=== PATIENT | female | born 1960 | race Caucasian/White ===

== ENCOUNTER 2019-05-12 20:46 | Inpatient (IN) | payer OTHER ==
[~2019-05-12] VITALS: Ht 160 cm; Wt 64.2 kg
[2019-05-12] MEDS ORDERED: KETOROLAC 30 MG INJ IV STA (22:09)
[2019-05-12] MEDS ORDERED: morphine 4 MG/ML VIAL IV STA ×2 (22:09→23:48)
[2019-05-12] MEDS ORDERED: METHYLPREDNISOLONE 125 MG INJ IV ONE (22:30)
[2019-05-12] MEDS ORDERED: DIAZEPAM 5 MG/ML SYG IV ONE (22:30)
[2019-05-12] MEDS ORDERED: TRAM50TA2 PO (23:45)
[2019-05-12] MEDS ORDERED: PRED20TA PO (23:45)
[2019-05-12] MEDS ORDERED: IBUP800T48 PO (23:45)
[2019-05-12] MEDS ORDERED: DIAZ5TAB PO (23:45)
[2019-05-12] MEDS ORDERED: ONDANSETRON 4 MG INJ IV STA (23:48)
[2019-05-12] MEDS ORDERED: SOD CHLORIDE 0.9% 500 ML IV STA (23:48)
[2019-05-13] VITALS (19 sets, daily range): BP systolic 111–169; BP diastolic 58–99; PULSE 72–104; RESP 10–22; Ht 160 cm; Wt 64.2 kg
--- NOTE | 2019-05-13 03:22 | ERD ---
ER Documentation Chief Complaint Chief Complaint low back pain x 1 year, worse today, hx of sciatica HPI This is a 58-year-old female comes in with low back pain for 1 year that is worse today. She is complaining of foot foot drop is unable to ambulate at this point. Patient was sent in by neurosurgeon Dr. Gregory for further evaluation and possible admission ROS All systems reviewed and are negative except as per history of present illness. Medications Home Meds Active Scripts Tramadol HCl (Tramadol HCl) 50 Mg Tablet, 50 MG PO Q6 PRN for MODERATE-SEVERE PAIN, #10 TAB Prov:ALEX NICE V TIMING INSPECTOR 05/12/19 Ibuprofen* (Motrin*) 800 Mg Tab, 800 MG PO Q6H PRN for PAIN/INFLAMMATION/SCIATICA FLA, #30 TAB Prov:ALEX NICE V TIMING INSPECTOR 05/12/19 Diazepam* (Valium*) 5 Mg Tablet, 5 MG PO Q8 PRN for MUSCLE SPASM/SCIATICA FLAREUP, #15 TAB Prov:ALEX NICE V TIMING INSPECTOR 05/12/19 Prednisone* (Prednisone*) 20 Mg Tab, 40 MG PO DAILY for SCIATICA FLAREUP for 4 Days, TAB Prov:ALEX NICE V TIMING INSPECTOR 05/12/19 Allergies Allergies: Coded Allergies: No Known Drug Allergies (Verified Allergy, Unknown, 05/12/19) PMhx/Soc History of Surgery: Yes (HYSTERECTOMY, BREAST LOBECTOMY ) Hx Cardiac Disorders: Yes (HTN) Hx Miscellaneous Medical Probl: Yes (CHRONIC BACK PAIN ) Hx Alcohol Use: No Hx Substance Use: No Hx Tobacco Use: No Smoking Status: Never smoker Physical Exam Vitals Vital Signs Date Temp Pulse Resp B/P (MAP) Pulse Ox O2 O2 Flow FiO2 Time Delivery Rate 05/13/19 76 16 174/89 97 Room Air 00:54 (117) 05/13/19 98.0 77 17 194/92 97 Room Air 00:18 (126) 05/12/19 98.8 94 18 161/90 100 20:58 (113) Physical Exam Const: No acute distress Head: Atraumatic Eyes: Normal Conjunctiva ENT: Normal External Ears, Nose and Mouth. Neck: Full range of motion. No meningismus. Resp: Clear to auscultation bilaterally Cardio: Regular rate and rhythm, no murmurs Abd: Soft, non tender, non distended. Normal bowel sounds Skin: No petechiae or rashes Back: No midline or flank tenderness Ext: No cyanosis, or edema Neur: Awake and alert Psych: Normal Mood and Affect Result Diagram: 05/13/19 0000 05/13/19 0000 Results 24 hrs Laboratory Tests Test 05/13/19 00:00 White Blood Count 7.4 10^3/ul Red Blood Count 3.79 10^6/ul Hemoglobin 11.0 g/dl Hematocrit 33.8 % Mean Corpuscular Volume 89.2 fl Mean Corpuscular Hemoglobin 29.0 pg Mean Corpuscular Hemoglobin Concent 32.5 g/dl Red Cell Distribution Width 12.4 % Platelet Count 258 10^3/UL Mean Platelet Volume 9.4 fl Immature Granulocytes % 0.400 % Neutrophils % 67.5 % Lymphocytes % 24.5 % Monocytes % 5.7 % Eosinophils % 1.5 % Basophils % 0.4 % Nucleated Red Blood Cells % 0.0 /100WBC Immature Granulocytes # 0.030 10^3/ul Neutrophils # 5.0 10^3/ul Lymphocytes # 1.8 10^3/ul Monocytes # 0.4 10^3/ul Eosinophils # 0.1 10^3/ul Basophils # 0.0 10^3/ul Nucleated Red Blood Cells # 0.0 10^3/ul Prothrombin Time 12.0 Sec Prothrombin Time Ratio 0.9 INR International Normalized Ratio 0.88 Activated Partial Thromboplast Time 26.0 Sec Urine Color YELLOW Urine Clarity CLOUDY Urine pH 9.0 Urine Specific [place] 1.011 Urine Ketones NEGATIVE mg/dL Urine Nitrite NEGATIVE mg/dL Urine Bilirubin NEGATIVE mg/dL Urine Urobilinogen NEGATIVE mg/dL Urine Leukocyte Esterase TRACE Jatinder/ul Urine Microscopic RBC 1 /HPF Urine Microscopic WBC 11 /HPF Urine Amorphous Crystals FEW /HPF Urine Bacteria FEW /HPF Urine Hemoglobin NEGATIVE mg/dL Urine Glucose NEGATIVE mg/dL Urine Total Protein NEGATIVE mg/dl Sodium Level 144 mmol/L Potassium Level 4.1 mmol/L Chloride Level 106 mmol/L Carbon Dioxide Level 28 mmol/L Anion Gap 10 Blood Urea Nitrogen 20 mg/dl Creatinine 0.78 mg/dl Est Glomerular Filtrat Rate mL/min > 60 mL/min Glucose Level 113 mg/dl Calcium Level 9.4 mg/dl Total Bilirubin 0.5 mg/dl Direct Bilirubin 0.00 mg/dl Indirect Bilirubin 0.5 mg/dl Aspartate Amino Transf (AST/SGOT) 17 IU/L Alanine Aminotransferase (ALT/SGPT) 13 IU/L Alkaline Phosphatase 55 IU/L Total Protein 7.0 g/dl Albumin 4.0 g/dl Globulin 3.00 g/dl Albumin/Globulin Ratio 1.33 Lipase 363 U/L Current Medications Medications Dose Sig/Marta Start Time Status Last (Trade) Ordered Route PRN Stop Time Admin Dose Reason Admin 125 mg ONCE ONCE 05/12/19 DC 05/12/19 Methylprednis IV 22:30 22:29 olone Sodium 05/12/19 22:31 Succinate (Solu-Medrol) Morphine 4 mg ONCE STAT 05/12/19 DC 05/12/19 Sulfate IV 22:09 22:29 (morphine) 05/12/19 22:11 Diazepam 5 mg ONCE ONCE 05/12/19 DC 05/12/19 (Valium) IV 22:30 22:29 05/12/19 22:31 Ketorolac 30 mg ONCE STAT 05/12/19 DC 05/12/19 Tromethamine IV 22:09 22:29 (Toradol) 05/12/19 22:11 Sodium 500 ml @ Q1H STAT 05/12/19 DC 05/13/19 Chloride 500 mls/hr IV 23:48 01:51 05/13/19 00:47 Morphine 4 mg ONCE STAT 05/12/19 DC Sulfate IV 23:48 (morphine) 05/12/19 23:51 Ondansetron 4 mg ONCE STAT 05/12/19 DC HCl (Zofran IV 23:48 Inj) 05/12/19 23:51 Procedures/MDM Medical decision makin-year-old female comes in essentially intractable back pain. Patient will be admitted to Dr. Courtney who is on-call for the IPA. Dr. Jackson will consult. Departure Diagnosis: Primary Impression: Sciatica of left side Additional Impression: Back pain Back pain location: back pain in unspecified location Chronicity: unspecified Back pain laterality: unspecified Qualified Codes: M54.9 - Dorsalgia, unspecified Condition: Serious SIGIFREDO URIASDona May 13, 2019 03:22
[2019-05-13] MEDS ORDERED: ONDANSETRON 4 MG INJ IV PRN ×3 (03:30→18:00)
[2019-05-13] MEDS ORDERED: ACETAMINOPHEN 325 MG TAB PO PRN (03:30)
[2019-05-13] MEDS ORDERED: GABA300C16 PO (04:28)
[2019-05-13] MEDS ORDERED: LOSA50TA14 PO (04:28)
[2019-05-13] MEDS ORDERED: ATOR20TA65 PO (04:28)
[2019-05-13] MEDS ORDERED: NAPR-688 PO (04:28)
[2019-05-13] MEDS: SOD CHLORIDE 0.9% 1,000 ML IV SCH ×2 (06:02→21:30)
[2019-05-13] MEDS: AMLODIPINE 5 MG TAB PO SCH ×2 (06:02→21:37)
--- NOTE | 2019-05-13 07:12 | CONS ---
Assessment/Plan Assessment/Plan Assessment/Plan (Daily) This is a 58-year-old female with several year history of axial low back pain and intermittent left lower extremity pain. However in the past 7-8 months the patient has developed further exacerbation of her radiating left lower extremity pain and numbness. For the past several weeks the left lower extremity radiating pain, numbness and weakness has become very severe and excruciating. The patient has already made several visits to the emergency department and was in fact hospitalized at [facility] according to the family. The patient was reportedly evaluated by a neurosurgeon at the time, found to have a large L4-5 disc herniation and stenosis and was given several choices including observation, interventional pain management versus surgical intervention that the family believes to have been a lumbar fusion. The patient and her family elected to undergo epidural steroid injection without help. The patient was subsequently sent to a rehab facility and physical therapy did not help her. For the past 2-3 weeks the patient has become near fully wheelchair-bound due to intractable symptomatology. She was evaluated in my clinic 1.[address] detailed discussion about her treatment options including continued observation and physical therapy and pain management, the patient and her family elected to undergo L4-5 laminectomy and microdiscectomy as soon as possible. Request for surgery authorization was placed with the patient's insurance and patient was evaluated by her PMD for preoperative clearance. As the arrangements were being made to schedule the patient for surgery pending insurance authorization and preop clearance, the patient and her family contacted my office multiple times indicating that the patient has had further increased low back pain and left lower extremity pain and numbness and still non-ambulatory. She also reported further increased weakness in the left lower extremity. The patient was advised to come to the ED for further evaluation. The patient has been subsequently admitted to the hospitalist service. The patient has tried ibuprofen, Tylenol No. 3 and other pain medications without any improvement of her symptomatology. Medrol dose pack has not provided her with fdc relief of her symptoms. The patient describes the radiating pain involving the left paraspinal lumbosacral area to the buttock to the posterior thigh down the posterior leg in the posterior lateral leg going to the entire foot accompanied by weakness and numbness. The patient denies obvious bowel or bladder dysfunction. Physical examination: This is a middle aged female lying in bed. She appears to be in some obvious distress related to LBP and lower extremity pain. She is accompanied by her and her son. Patient is awake alert and oriented 4. Language is fluent. Face is symmetric. She speak some Beninese but her and son are completely fluent in Beninese. Shoulder shrugs are symmetric. Muscle bulk and tone is normal bilateral upper and lower extremities. Deep tendon reflexes are 1+ bilateral upper and lower extremities except for the left ankle where it is hypoactive. Sensation to light touch is grossly normal bilateral upper and lower extremities except for the left posterior and posterior lateral calf and the dorsum and the plantar surface of the left foot when compared to the right. Motor strength bilateral upper extremities is 5- out of 5. Motor strength on the right lower extremity is at least 4 out of 5 but seems to be limited secondary to his low back pain and discomfort. Motor strength left lower extremity is as follows: Hip flexion 2 out of 5, knee flexion and extension 3 out of 5 (seems to be limited at least partially secondary to pain), left ankle dorsiflexion 4 out of 5, left EHL 4- out of 5, left ankle dorsiflexion 4 out of 5. There is no Weston sign present bilaterally. Straight leg raise testing has been deferred due to the patient being in extreme pain and discomfort. Gait testing has been deferred as the patient is wheelchair-bound and in severe discomfort. LUMBOSACRAL SPINE: Examination of the lumbar spine reveals moderate to severe tenderness at the lumbosacral junction at midline and over the left paraspinal region. LUMBOSACRAL SPINE ACTIVE RANGE OF MOTION: Testing has been deferred due to severe pain. Imaging: Outside MRI of lumbar spine with and without contrast, 04/21/2019: The normal lumbar lordosis is mostly preserved. There is no gross fracture noted. There is a subtle L3-4 anterolisthesis. Most significantly there is a very large central and left paracentral disc herniation at L4-5 causing clinically severe central canal and lateral recess stenosis greater on the left than the ri ght impinging on the thecal sac as well as the traversing L5 nerve roots bilaterally. Assessment/plan: I have again reviewed the above clinical findings in great detail with the patient and her family. The patient's current severe low back pain and even to a greater extent left lower extremity pain, numbness and weakness seems to be related to the large central and paracentral L4-5 disc herniation leading to severe central and lateral recess stenosis. The patient's current symptomatology seems to be related to acute on chronic pathology based on the patient's history. We have again discussed the patient's various treatment options in detail with the options including continued observation, further physical therapy, further interventional pain management versus neurosurgical intervention. The patient has already undergone physical therapy and has had one lumbar epidural steroid i njection without significant improvement. The patient and her family would like for patient to undergo urgent neurosurgical intervention. The patient can benefit from L4-5 decompressive lumbar laminectomy, medial facetectomy and foraminotomies and microdiscectomy. I have discussed the risks and benefits of the above operation in great detail with the patient and her family with the risks including bleeding, infection, difficulty with wound healing, weakness, numbness, paralysis, bowel or bladder dysfunction, cerebrospinal fluid leak, injury to the adjacent tissue, failure of improvement of symptoms or worsening of symptoms, need for further surgeries including revision or extension of the decompression and possible need for instrumented lumbar fusion as well as those risks associated with surgery and general anesthesia including deep venous thrombosis, pulmonary embolism, pneumonia, heart attack, stroke, and . The patient's back pain may or may not improve even with the above operation. The patient's anatomy including body habitus encountered intraoperatively may not allow for minimally invasive approach and we may need to proceed with the traditional open approach if necessary in order to achieve the above goals. There is also a 10-15% chance of recurrent disc herniation that may require further intervention including surgeries.The patient and her family fully understand the above discussion and wish to proceed with the above surgery. The patient has already been cleared preoperatively. AQUILINO ROMAN MD May 13, 2019 07:11
[2019-05-13] MEDS ORDERED: LOSARTAN 50 MG TAB PO SCH (09:00)
[2019-05-13] MEDS: GABAPENTIN 300 MG CAP PO SCH (09:00)
[2019-05-13] MEDS: LOSARTAN 50 MG TAB PO SCH (09:00)
--- NOTE | 2019-05-13 09:22 | HP ---
DATE OF ADMISSION: 05/13/2019 CHIEF COMPLAINT: Low back pain radiating to left leg care. HISTORY OF PRESENT ILLNESS: A 58-year-old female with a history of hypertension and chronic low back pain for about 8 months, presented to emergency room, was admitted to the hospital with worsening lo w back pain radiating to the buttock and all the way down to her left heel. The patient was diagnose d with lumbar disk disease in the past and previously evaluated. An epidural injection was initially suggested as an option. The patient underwent a lumbar epidural with no improvement in her symptoms . The patient was actually diagnosed with L4-L5 disk herniation. She has already been evaluated by Dr. Ashley and planned to undergo L4-L5 decompressive lumbar laminectomy. On review of systems she denies any chest pain at rest or with exertion. She denies shortness of bambi ath or dyspnea on exertion. No abdominal pain, nausea or vomiting. PAST MEDICAL HISTORY: 1. Hypertension. 2. Hyperlipidemia. 3. Chronic low back pain due to lumbar disk disease. PAST SURGICAL HISTORY: Status post total abdominal hysterectomy, status post left breast cyst remova l. MEDICATIONS PRIOR TO ADMISSION: Include atorvastatin, diazepam, gabapentin, losartan, ibuprofen and prednisone. SOCIAL HISTORY: The patient lives at home. Family members were at the bedside. She denies tobacco or alcohol use. PHYSICAL EXAMINATION: GENERAL: Well-developed, well-nourished female who is in moderate distress due to left lower extremi ty pain. VITAL SIGNS: Stable. She is afebrile. HEENT: Extraocular muscles intact. Pupils equal and reactive to light bilaterally. Sclerae are ani cteric. Oropharynx is clear and moist. NECK: Supple, no JVD, no carotid bruits. LUNGS: Clear to auscultation bilaterally. CARDIAC: Regular rate and rhythm. No murmurs, rubs or gallops. ABDOMEN: Soft, nontender, nondistended, normoactive bowel sounds. EXTREMITIES: No clubbing, cyanosis, or edema. BACK: The patient has moderate tenderness on palpation extending to the left buttock. NEUROLOGICAL: Patient has decreased motor strength on the left side, 3/5 on the left lower extremity 3/5. There is sign of straight leg. Right-sided normal strength. MRI of the lumbar spine done on 0 04/21/2019 shows a subtle L3-L4 anterolisthesis. Most significantly there is a very large central an d left past central disk herniation at L4-L5 causing clinically severe central canal and lateral rece ss stenosis, greater on the left than the right impinging on the thecal sac as well as transversing t he L5 nerve roots bilaterally. ASSESSMENT: 1. A 58-year-old female with severe lumber disk disease and radiculopathy. 2. Hypertension. 3. Hyperlipidemia. 4. Chronic low back pain. PLAN: Admit to med/surg, proceed with the L4-L5 decompressive lumbar laminectomy, medialis facetectom y, and foraminotomy and microdiskectomy. Resume selective home medications. The patient is medically cleared to undergo proposed surgical intervention. Dictated By: SPENCER ANDESRON/BRI Conf#: [id number] DID#: [id number]
[2019-05-13] MEDS: morphine 4 MG/ML VIAL IV PRN ×2 (09:40→22:00)
[2019-05-13] MEDS ORDERED: DIAZEPAM 5 MG TAB PO PRN (10:00)
--- NOTE | 2019-05-13 13:39 | PREAC ---
Date/Time of Note Date/Time of Note DATE: 05/13/19 TIME: 13:39 Anesthesia Eval and Record Evaluation Time Pre-Procedure Interview DATE: 05/13/19 TIME: 13:39 Age 58 Sex female NPO: 8 hrs Preoperative diagnosis L4-5 HNP with spinal stenosis and radiculopathy Planned procedure L405 decompressive laminectomy, medial facetectomy, foraminotomy, microdiscectomy Past Medical History Past Medical History: Includes Cardio: HTN, Dyslipidemia Surgery & Anesthesia Issues No known issue Meds Anticoagulation: No Beta Brian within 24 hr: No Reason Beta Brian not given: Pt. not on B-Brian Active Scripts Tramadol HCl (Tramadol HCl) 50 Mg Tablet, 50 MG PO Q6 PRN for MODERATE-SEVERE PAIN, #10 TAB Prov:ALEX NICE V DORMITORY SUPERVISOR 05/12/19 Ibuprofen* (Motrin*) 800 Mg Tab, 800 MG PO Q6H PRN for PAIN/INFLAMMATION/SCIATICA FLA, #30 TAB Prov:ALEX NICE V DORMITORY SUPERVISOR 05/12/19 Diazepam* (Valium*) 5 Mg Tablet, 5 MG PO Q8 PRN for MUSCLE SPASM/SCIATICA FLAREUP, #15 TAB Prov:ALEX NICE V DORMITORY SUPERVISOR 05/12/19 Prednisone* (Prednisone*) 20 Mg Tab, 40 MG PO DAILY for SCIATICA FLAREUP for 4 Days, TAB Prov:ALEX NICE V DORMITORY SUPERVISOR 05/12/19 Reported Medications Losartan Potassium* (Losartan Potassium*) 50 Mg Tablet, 50 MG PO DAILY for 30 Days, #30 05/13/19 Naproxen* (Naproxen*) 500 Mg Tablet, 500 MG PO BID for 30 Days TAKE 1 TABLET BY MOUTH EVERY DAY 05/13/19 Gabapentin* (Gabapentin*) 300 Mg Capsule, 300 MG PO DAILY 05/13/19 Atorvastatin Calcium (Atorvastatin Calcium) 20 Mg Tablet, 20 MG PO QHS for 30 Days, #30 05/13/19 Current Medications Ondansetron HCl (Zofran Inj) 4 mg BRIDGE ORDER PRN IV NAUSEA/VOMITING; Start 05/13/19 at 03:30; Stop 05/14/19 at 03:29 Acetaminophen (Tylenol Tab) 650 mg ER BRIDGE PRN PO .MILD PAIN 1-3 OR TEMP; Start 05/13/19 at 03:30; Stop 05/14/19 at 03:29 Losartan Potassium (Cozaar) 50 mg DAILY PO ; Start 05/13/19 at 09:00 Sodium Chloride 1,000 ml @ 75 mls/hr [id number] IV Last administered on 05/13/19at 06:02; Admin Dose 75 MLS/HR; Start 05/13/19 at 05:30 Amlodipine Besylate (Norvasc) 5 mg BID PO Last administered on 05/13/19at 06:02; Admin Dose 5 MG; Start 05/13/19 at 06:00 Ondansetron HCl (Zofran Inj) 4 mg Q4H PRN IV NAUSEA AND/OR VOMITING; Start 05/13/19 at 05:30 Hydralazine HCl (Apresoline) 5 mg Q6 PRN PO SYSTOLIC >160; Start 05/13/19 at 06:00 Atorvastatin Calcium (Lipitor) 20 mg QHS PO ; Start 05/13/19 at 21:00 Diazepam (Valium) 5 mg Q8H PRN PO MUSCLE SPASM/SCIATICA FLAREUP; Start 05/13/19 at 10:00 Gabapentin (Neurontin) 300 mg DAILY PO ; Start 05/13/19 at 09:00 Morphine Sulfate (morphine) 4 mg Q3H PRN IV SEVERE PAIN LEVEL 7-10 Last administered on 05/13/19at 09:40; Admin Dose 4 MG; Start 05/13/19 at 09:30 Meds reviewed: Yes Allergies Coded Allergies: No Known Drug Allergies (Verified Allergy, Unknown, 05/12/19) Allergies Reviewed: Yes Labs/Studies Labs Reviewed: Reviewed by anesthesiologist Result Diagram: 05/13/19 0000 05/13/19 0000 Laboratory Tests 05/13/19 00:00 test: N/A Pre-procedure Exam Last vitals Vital Signs Date Temp Pulse Resp B/P (MAP) Pulse Ox O2 O2 Flow FiO2 Time Delivery Rate 05/13/19 98.0 104 20 128/74 98 07:38 (92) 05/13/19 Room Air 03:45 Airway: Adequate mouth opening Mallampati: Mallampati I Teeth: Normal Lung: Normal Heart: Normal ASA Physical Status ASA physical status: 2 Emergency: None Planned Anesthetic General/MAC: ETT Planned Pain Management Parenteral pain med Pre-operative Attestations Prior to commencing anesthesia and surgery, the patient was re-evaluated, there was verification of: *The patient's identity *The results of appropriate recent lab work and preoperative vital signs *The above evaluation not changing prior to induction *Anesthetic plan, risk benefits, alternative and complications discussed with patient/family; questions answered; patient/family understands, accepts and wishes to proceed. ESVIN MILLER MD May 13, 2019 13:39
[2019-05-13] MEDS ORDERED: SEVOFLURANE 15 MIN ONE (14:00)
[2019-05-13] MEDS ORDERED: CEFAZOLIN 1 GM INJ ONE (14:00)
[2019-05-13] MEDS ORDERED: GLYCOPYRROLATE 0.4 MG INJ ONE ×2 (14:01→16:48)
[2019-05-13] MEDS ORDERED: ROCURONIUM 50 MG INJ ONE (14:01)
[2019-05-13] MEDS ORDERED: SUCCINYLCHOLINE CHLORIDE 100 MG/5 ML SYG IV ONE (14:01)
[2019-05-13] MEDS ORDERED: LIDOCAINE 2% (SDV) 5 ML INJ ONE (14:01)
[2019-05-13] MEDS ORDERED: PROPOFOL 20 ML ONE (14:01)
[2019-05-13] MEDS ORDERED: NEOSTIGMINE 3 MG/3 ML SYRINGE ONE (14:01)
[2019-05-13] MEDS ORDERED: MEPERIDINE 100 MG INJ ONE (14:02)
[2019-05-13] MEDS ORDERED: BUPIVACAINE 0.5% (SDV) 30 ML INJ ONE (14:16)
[2019-05-13] MEDS ORDERED: THROMBIN (BOVINE) 5,000 UNIT VIAL TP ONE (14:16)
[2019-05-13] MEDS ORDERED: GELATIN SIZE 100 SPONGE ONE (14:16)
[2019-05-13] MEDS ORDERED: LIDOCAINE 1%/EPI 30 ML INJ ONE (14:17)
[2019-05-13] MEDS ORDERED: POLYMYXIN/BACITRACIN 1L IRRIG ONE (14:17)
[2019-05-13] MEDS ORDERED: METHYLPREDNISOLONE ACET 80 MG/ML 1 ML INJ ONE (17:31)
[2019-05-13] MEDS ORDERED: METHYLPREDNISOLONE ACET 80 MG/ML 1 ML ONE (17:32)
[2019-05-13] MEDS ORDERED: METOCLOPRAMIDE 10 MG INJ ONE (17:41)
[2019-05-13] MEDS ORDERED: ONDANSETRON 4 MG INJ ONE (17:41)
[2019-05-13] MEDS ORDERED: HYDROmorphONE 1 MG/5 ML IV SYRINGE IV PRN ×3 (18:00)
[2019-05-13] MEDS ORDERED: NALOXONE (0.4 MG/ML) INJ IV PRN (18:00)
[2019-05-13] MEDS ORDERED: BISACODYL 10 MG SUPP PR PRN (18:00)
[2019-05-13] MEDS ORDERED: MEPERIDINE 25 MG INJ IV PRN (18:00)
[2019-05-13] MEDS ORDERED: LABETALOL HCL 20MG INJ IV PRN (18:00)
[2019-05-13] MEDS ORDERED: CYCLOBENZAPRINE 10 MG TAB PO PRN (18:00)
[2019-05-13] MEDS ORDERED: hydrALAzine 20 MG INJ IV PRN (18:00)
[2019-05-13] MEDS ORDERED: traMADol 50 MG TAB PO PRN (18:00)
[2019-05-13] MEDS ORDERED: MIDAZOLAM 1 MG/ML 2 ML INJ IV PRN (18:00)
[2019-05-13] MEDS ORDERED: DIPHENHYDRAMINE 50 MG INJ IV PRN (18:00)
[2019-05-13] MEDS ORDERED: HYDROmorphONE 0.5 MG/0.5 ML SYG IV PRN (18:00)
[2019-05-13] MEDS ORDERED: FENTAnyl 50 MCG/ML VIAL IV PRN ×3 (18:00)
[2019-05-13] MEDS ORDERED: METOCLOPRAMIDE 10 MG INJ IV PRN (18:00)
[2019-05-13] MEDS ORDERED: EPHEDrine 25 MG/5 ML SYG IV PRN (18:00)
--- NOTE | 2019-05-13 18:02 | SIPON ---
Date/Time of Note Date/Time of Note DATE: 05/13/19 TIME: 18:00 Operative Report Preoperative Diagnosis L4-5 HNP L4-5 severe central and left lateral recess stenosis Postoperative Diagnosis L4-5 HNP L4-5 severe central and left lateral recess stenosis Operation/Procedure Performed MIS L4 laminectomy, L. L4-5 medial facetectomy, foraminotomy, microdiscectomy Surgeon see signature line physician assistant psychiatry None Anesthesia: general Estimated blood loss: 10 - 50 ml's (25cc) Transfusion Required none Specimen None Grafts/Implants none Complications none AQUILINO ROMAN MD May 13, 2019 18:02
[2019-05-13] MEDS ORDERED: LABETALOL HCL 20MG INJ ONE (18:03)
[2019-05-13] MEDS: CEFAZOLIN 1 GM/50 ML (PMX) 50 ML IVPB SCH (18:33)
[2019-05-13] MEDS: IBUPROFEN 800 MG TAB PO SCH ×2 (21:33→22:00)
[2019-05-13] MEDS: ATORVASTATIN 20 MG TAB PO SCH (21:33)
[2019-05-13] MEDS: DOCUSATE SODIUM 100 MG CAP PO SCH (21:33)
--- NOTE | 2019-05-13 23:35 | OPR ---
Date/Time of Note Date/Time of Note DATE: 05/13/19 TIME: 23:35 Operative Report Procedure Date: May 13, 2019 Preoperative Diagnosis Please see below. Postoperative Diagnosis Please see below. Operation/Procedure Performed Please see below. Surgeon see signature line Certification Engineer None Anesthesia Type: general Estimated Blood Loss: 10 - 50 ml's (25cc) Transfusion none Specimen Please see below. Grafts/Implants none Tubes/Drains Please see below. Complications none Pt Condition Post Procedure: stable Disposition: PACU Procedure Description Date of operation: 05/13/2019 Operating surgeon: Aquilino Roman M.D. Preoperative diagnosis: 1. L4-5 severe central and left lateral recess stenosis 2. L4-5 large central and left paracentral disc herniation Post operative diagnosis: 1. L4-5 severe central and left lateral recess stenosis 2. L4-5 large central and left paracentral disc herniation Procedure(s) performed: 1. Minimally invasive left L4 decompressive hemilaminectomy 2. Minimally invasive left L4-5 medial facetectomy and foraminotomy 3. Minimally invasive left L4-5 microdiscectomy 4. Intraoperative microscope with microdissection 5. Intraoperative fluoroscopy with professional interpretation 6. Intraoperative neurophysiologic monitoring including SSEP, MEP and EMG Indication for procedure: Please look at the inpatient consultation note for a full set of indications. Description of operative procedure: The patient was brought to the operating room and after general anesthesia was obtained, she was placed prone on top of the Lorenzo frame. Her arms were abducted less than 90 and placed in superman position. The Lorenzo frame was slightly raised. The midline lumbar spine was marked. A vertical line approximately 1-1/2 cm to the left of midline was marked. After the skin was prepped and draped under standard sterile fashion, the spinal needle was inserted along the left paraspinal lumbar line under direct lateral fluoroscopy and the L4-5 level was located. A small vertical incision along the left paraspinal lumbar line centered at the entry point of the spinal needle was marked. Local anesthetics were infiltrated into the marked incision. The skin was then incised down to the level of the fascia. Serial tube dilators were inserted under direct lateral fluoroscopy and the posterior soft tissue was dissected off the posterior bony elements. The final working tube was inserted under direct lateral fluoroscopy, placed parallel to the L4-5 disc space and medialized and locked to the table in that position. The operative microscope was into the field. The posterior soft tissue was dissected off the posterior bony elements. Using a high-speed drill, Kerrison rongeurs and curettes, we performed a decompressive left L4 hemilaminectomy, left L4-5 medial facetectomy and foraminotomy. The ligamentum flavum was removed. The thecal sac and the traversing left L5 nerve root were exposed. The left L4-5 lateral recess was fully decompressed. The traversing left L5 nerve root and the thecal sac were then gently medially retracted. The raised anulus indicating the disc herniation was located. The annulus was then cut in a cruciate fashion. Several pieces of loose disc fragment were seen readily coming out from the disc space and were removed. The down pushing curette was used to remove several other loose pieces of disc fragment. The ventral epidural space was fully decompressed. By the end of the procedure, the thecal sac and traversing left L5 nerve root were fully decompressed and pulsatile. Complete hemostasis was obtained. The wound was copiously irrigated with antibiotic solution. 80 mg of Depo-Medrol was placed on top of the exposed dura. The tube was removed. The muscle and fascia layers were reapproximated with interrupted sutures. The dermal layer was reapproximated with interrupted sutures. The skin was reapproximated Dermabond. A sterile dressing was placed on top of the incision site. The patient was then placed supine on the hospital bed, awoken up, extubated and transported to the recovery room in stable condition. The patient was awake and moving her upper and lower extremities equally and to command in the recovery room. Estimated blood loss: 25 cc Blood products administered: None Packs/drains: None Type of anesthesia: General Incision: Left paraspinal lumbar Skin closure: Dermabond Wound classification: Clean Specimen removed: None Patient's condition: Stable Prognosis: Good AQUILINO ROMAN MD May 13, 2019 23:35
[2019-05-14] MEDS: CEFAZOLIN 1 GM/50 ML (PMX) 50 ML IVPB SCH ×2 (01:25→09:53)
[2019-05-14 02:07] VITALS: BP 137/74; PULSE 96; RESP 18
[2019-05-14] MEDS: IBUPROFEN 800 MG TAB PO SCH ×2 (05:14→13:07)
[2019-05-14 05:21] VITALS: BP 140/79; PULSE 88
[2019-05-14] MEDS ORDERED: PANTOPRAZOLE (EC) 40 MG TAB PO SCH (06:00)
[2019-05-14] MEDS ORDERED: PANTOPRAZOLE 40 MG INJ IV SCH (06:00)
[2019-05-14 07:34] VITALS: BP 146/73; PULSE 79; RESP 18
[2019-05-14] MEDS: SOD CHLORIDE 0.9% 1,000 ML IV SCH ×2 (08:10→13:08)
--- NOTE | 2019-05-14 08:18 | PAC ---
Date/Time of Note Date/Time of Note DATE: 05/14/19 TIME: 08:17 Post-Anesthesia Notes Post-Anesthesia Note Last documented vital signs Vital Signs Date Temp Pulse Resp B/P (MAP) Pulse Ox O2 O2 Flow FiO2 Time Delivery Rate 05/14/19 98.5 79 18 146/73 94 Room Air 07:34 (97) 05/13/19 8.0 18:54 Activity: WNL Respiratory function: WNL Cardiovascular function: WNL Mental status: Baseline Pain reasonably controlled: Yes Hydration appropriate: Yes Nausea/Vomiting absent: Yes ESVIN MILLER MD May 14, 2019 08:18
[2019-05-14] MEDS ORDERED: BISACODYL 10 MG SUPP PR PRN (09:30)
[2019-05-14] MEDS ORDERED: MAGNESIUM HYDROXIDE 30ML CUP PO PRN (09:30)
[2019-05-14] MEDS ORDERED: HYDROCODONE/APAP (10/325) TAB PO PRN (09:30)
[2019-05-14] MEDS ORDERED: POLYETHYLENE GLYCOL 17 GM PACKET PO SCH (09:30)
--- NOTE | 2019-05-14 09:34 | PN ---
Date/Time of Note Date/Time of Note DATE: 05/14/19 TIME: 09:33 Assessment/Plan VTE Prophylaxis Risk score (from Ns)>0 risk: 3 SCD applied (from Ns): Yes Pharmacological prophylaxis: NA/contraindicated Pharm contraindication: surgical contra Lines/Catheters IV Catheter Type (from Nrsg): Peripheral IV Assessment/Plan Assessment/Plan 58 yo female with: 1. L4-5 HNP and severe central and left lateral recess stenosis, status post L4 laminectomy, L4-5 medial facetectomy, foraminotomy and microdiscectomy, POD#1, Physical therapy evaluation pending. Pain controlled. Discharge planning later this afternoon after physical therapy evaluation and recommendation and if okay with Dr. Ashley. 2. Hypertension: Continue home medications, blood pressure controlled. Prophylaxis: SCDs for DVT prophylaxis, Protonix for GI prophylaxis Disposition: PT evaluation this morning, anticipated discharge this afternoon if okay with neurosurgery and patient ambulatory. She reports that her FWW was already ordered and a physical therapy has been ordered for discharge. Result Diagram: 05/13/19 0000 05/13/19 0000 Subjective 24 Hr Interval Summary Free Text/Dictation Patient doing well this morning, she has some low back pain and experiencing some numbness in her left lower extremity as she reports, she is postop day 1 today and had her L4-L5 laminectomy overnight. She is awaiting physical therapy evaluation. She is aware she is likely to discharge home later today with home PT. She already had a FWW ordered as an outpatient as she reports and a prescription for [place] has been left in her chart for discharge purposes once cleared by both physical therapy and neurosurgery. Exam/Review of Systems Exam Vitals Vital Signs Date Temp Pulse Resp B/P (MAP) Pulse Ox O2 O2 Flow FiO2 Time Delivery Rate 05/14/19 98.5 79 18 146/73 94 Room Air 07:34 (97) 05/13/19 8.0 18:54 Intake and Output 05/13/19 05/13/19 05/14/19 1515:00 23:00 07:00 IntakeIntake Total 1000 ml 593 ml OutputOutput Total 20 ml BalanceBalance 1000 ml -20 ml 593 ml Constitutional: alert, oriented, well developed Respiratory: clear to auscultation, normal air movement Cardiovascular: regular rate and rhythm, nl pulses Gastrointestinal: soft, non-tender Musculoskeletal: nl extremities to inspection, nl gait and stance Extremities: normal pulses Neurological: ROAD CONTRACTOR II-XII intact, nl mental status, nl speech, other (Patient moving all 4 extremities, physical therapy evaluation pending.) Medications Medication Current Medications Losartan Potassium (Cozaar) 50 mg DAILY PO ; Start 05/13/19 at 09:00 Sodium Chloride 1,000 ml @ 75 mls/hr [id number] IV Last administered on 05/13/19at 21:30; Admin Dose 75 MLS/HR; Start 05/13/19 at 05:30 Amlodipine Besylate (Norvasc) 5 mg BID PO Last administered on 05/13/19at 21:37; Admin Dose 5 MG; Start 05/13/19 at 06:00 Ondansetron HCl (Zofran Inj) 4 mg Q4H PRN IV NAUSEA AND/OR VOMITING; Start 05/13/19 at 05:30 Hydralazine HCl (Apresoline) 5 mg Q6 PRN PO SYSTOLIC >160; Start 05/13/19 at 06:00 Atorvastatin Calcium (Lipitor) 20 mg QHS PO Last administered on 05/13/19at 21:33; Admin Dose 20 MG; Start 05/13/19 at 21:00 Diazepam (Valium) 5 mg Q8H PRN PO MUSCLE SPASM/SCIATICA FLAREUP; Start 05/13/19 at 10:00 Gabapentin (Neurontin) 300 mg DAILY PO ; Start 05/13/19 at 09:00 Morphine Sulfate (morphine) 4 mg Q3H PRN IV SEVERE PAIN LEVEL 7-10 Last administered on 05/13/19at 22:00; Admin Dose 4 MG; Start 05/13/19 at 09:30 Tramadol HCl (Ultram) 50 mg Q4H PRN PO .PAIN 1-5; Start 05/13/19 at 18:00 Hydromorphone HCl (Dilaudid) 0.2 mg Q1H PRN IV .BREAKTHROUGH PAIN; Start 05/13/19 at 18:00 Cefazolin Sodium 50 ml @ 100 mls/hr Q8H IVPB Last administered on 05/14/19at 01:25; Admin Dose 100 MLS/HR; Start 05/13/19 at 18:00; Stop 05/14/19 at 10:29 Docusate Sodium (Colace) 100 mg BID PO Last administered on 05/13/19at 21:33; Admin Dose 100 MG; Start 05/13/19 at 21:00 Cyclobenzaprine HCl (Flexeril) 5 mg TID PRN PO .MUSCLE SPASM; Start 05/13/19 at 18:00 Naloxone HCl (Narcan) 0.2 mg Q2M PRN IV .RR 8 BREATHS/MIN OR LESS; Start 05/13/19 at 18:00 Ibuprofen (Motrin) 800 mg Q8 PO Last administered on 05/14/19at 05:14; Admin Dose 800 MG; Start 05/13/19 at 18:00 Pantoprazole (Protonix Tab) 40 mg DAILY@06 PO Last administered on 05/14/19at 05:13; Admin Dose 40 MG; Start 05/14/19 at 06:00 Acetaminophen/ Hydrocodone Bitart ([place] (10/325)) 1 tab Q4H PRN PO PAIN LEVEL 6-10; Start 05/14/19 at 09:30 Magnesium Hydroxide (Milk Of Mag) 30 ml DAILY PRN PO CONSTIPATION; Start 05/14/19 at 09:30 Bisacodyl (Dulcolax Supp) 10 mg DAILY PRN NM CONSTIPATION; Start 05/14/19 at 09:30 Polyethylene Glycol (Miralax) 17 gm DAILY PO ; Start 05/14/19 at 09:30 CHRISTINA MUNOZ May 14, 2019 09:34
[2019-05-14] MEDS: DOCUSATE SODIUM 100 MG CAP PO SCH ×2 (09:47→20:08)
[2019-05-14] MEDS: GABAPENTIN 300 MG CAP PO SCH (09:47)
[2019-05-14] MEDS: AMLODIPINE 5 MG TAB PO SCH ×2 (09:48→20:09)
[2019-05-14] MEDS: LOSARTAN 50 MG TAB PO SCH (09:48)
[2019-05-14 14:55] VITALS: BP 142/77; PULSE 94; RESP 18
--- NOTE | 2019-05-14 15:24 | PDOCDIS ---
Discharge Instructions CONDITION [id number] Patient Condition: [id number] Stable ACTIVITY: [id number] Activity Restrictions: [id number] Slowly Increase Activity [id number] Activity Restrictions [id number] Please obtain additional Comment: postop recs or restrictions from Dr Ashley FOLLOW UP/APPOINTMENTS Follow-up Plan PCP in [address] Ashley in 1 to 2 weeks CHRISTINA MUNOZ May 14, 2019 15:24
[2019-05-14] MEDS ORDERED: POLY17PO6 PO (15:34)
[2019-05-14] MEDS ORDERED: CYCL10TA7 PO (15:34)
[2019-05-14] MEDS ORDERED: IBUP800T48 PO (15:34)
[2019-05-14] MEDS ORDERED: DOCU-144 PO (15:34)
[2019-05-14] MEDS ORDERED: PANT40TA4 PO (15:34)
--- NOTE | 2019-05-14 16:18 | DS ---
Date/Time of Note Date/Time of Note DATE: 05/14/19 TIME: 16:12 Discharge Summary Admission/Discharge Info Admit Date/Time May 13, 2019 at 03:21 Discharge Date/Time 05/14/2019 Discharge Diagnosis 1. L4-5 HNP and severe central and left lateral recess stenosis, status post L4 laminectomy, L4-5 medial facetectomy, foraminotomy and microdiscectomy, POD#1 2. Hypertension Patient Condition: Stable Consults Neurosurgery, Dr Ashley Procedures L4 laminectomy, L4-5 medial facetectomy, foraminotomy and microdiscectomy Hx of Present Illness 58-year-old female with a history of hypertension and chronic low back pain for about 8 months, presented to emergency room, was admitted to the hospital with worsening low back pain radiating to the buttock and all the way down to her left heel. The patient was diagnosed with lumbar disk disease in the past and previously evaluated. An epidural injection was initially suggested as an option. The patient underwent a lumbar epidural with no improvement in her symptoms. The patient was actually diagnosed with L4-L5 disk herniation. She has already been evaluated by Dr. Ashley and planned to undergo L4-L5 decompressive lumbar laminectomy. Hospital Course Patient had the anticipated procedure, L4 laminectomy and L4-L5 medial facetectomy, foraminotomy and microdiscectomy, she is postoperative day #1 today, she has been seen by physical therapy, she ambulated with a walker, does stair training, she lives on the second floor and pain is controlled. Patient is being discharged home in stable condition, she is to follow-up with Dr. Ashley within 1 to 2 weeks and follow-up with primary care physician within 1 week. Home health PT, bedside commode and FWW have been arranged. Home Meds Active Scripts Pantoprazole* (Pantoprazole*) 40 Mg Tablet., 40 MG PO DAILY for 30 Days Prov:CHRISTINA MUNOZ 05/14/19 Ibuprofen* (Motrin*) 800 Mg Tab, 800 MG PO Q8 PRN for PAIN, #30 TAB Prov:CHRISTINA MUNOZ 05/14/19 Polyethylene Glycol* (Miralax*) 17 Gm Powd.pack, 17 GM PO DAILY for 30 Days Over the counter Prov:CHRISTINA MUNOZ 05/14/19 Docusate Sodium* (Colace*) 100 Mg Capsule, 100 MG PO BID, #60 CAP Prov:CHRISTINA MUNOZ 05/14/19 Cyclobenzaprine Hcl* (Cyclobenzaprine Hcl*) 10 Mg Tablet, 5 MG PO TID PRN for .MUSCLE SPASM, #30 TAB Prov:CHRISTINA MUNOZ 05/14/19 Reported Medications Losartan Potassium* (Losartan Potassium*) 50 Mg Tablet, 50 MG PO DAILY for 30 Days, #30 05/13/19 Gabapentin* (Gabapentin*) 300 Mg Capsule, 300 MG PO DAILY 05/13/19 Atorvastatin Calcium (Atorvastatin Calcium) 20 Mg Tablet, 20 MG PO QHS for 30 Days, #30 05/13/19 Discontinued Reported Medications Naproxen* (Naproxen*) 500 Mg Tablet, 500 MG PO BID for 30 Days TAKE 1 TABLET BY MOUTH EVERY DAY 05/13/19 Discontinued Scripts Tramadol HCl (Tramadol HCl) 50 Mg Tablet, 50 MG PO Q6 PRN for MODERATE-SEVERE PAIN, #10 TAB Prov:ALEX NICE NP 05/12/19 Ibuprofen* (Motrin*) 800 Mg Tab, 800 MG PO Q6H PRN for PAIN/INFLAMMATION/SCIATICA FLA, #30 TAB Prov:ALEX NICE V SQL APPLICATION DEVELOPER 05/12/19 Diazepam* (Valium*) 5 Mg Tablet, 5 MG PO Q8 PRN for MUSCLE SPASM/SCIATICA FLAREUP, #15 TAB Prov:ALEX NICE V SQL APPLICATION DEVELOPER 05/12/19 Prednisone* (Prednisone*) 20 Mg Tab, 40 MG PO DAILY for SCIATICA FLAREUP for 4 Days, TAB Prov:ALEX NICE NP 05/12/19 Follow-up Plan PCP in [address] Ashley in 1 to 2 weeks Primary Care Provider Not On Staff Doctor Time spent on discharge: > 30 minutes CHRISTINA MUNOZ May 14, 2019 16:17
[2019-05-14 19:41] VITALS: BP 140/77; PULSE 97; RESP 18
[2019-05-14] MEDS: ATORVASTATIN 20 MG TAB PO SCH (20:08)
--- NOTE | 2019-05-14 20:19 | PN ---
Date/Time of Note Date/Time of Note DATE: 05/14/19 TIME: 20:18 AQUILINO ROMAN MD May 14, 2019 20:19
== END 2019-05-14 21:05 | disposition home health service (06) | DRG 520 ==
LOC: FTE 20:46 → 2NE 05-13 03:21
PROVIDERS: ADMIT Legal Medicine; ATTEND Legal Medicine
PROC: 0SB20ZZ Excision of Lumbar Vertebral Disc, Open Approach (ICD-10-PCS; 2019-05-13)
PROC: 01NB0ZZ Release Lumbar Nerve, Open Approach (ICD-10-PCS; principal; 2019-05-13 14:00)
DX: M51.26 Other intervertebral disc displacement, lumbar region (principal); M48.061 Spinal stenosis, lumbar region without neurogenic claudication; R20.2 Paresthesia of skin; I10 Essential (primary) hypertension
CPT/HCPCS: 36415; 71045; 72114; 80053; 81001; 83690; 85025; 85610; 85730; 87081; 93005; 96374; 96375; 96376; 97116; 97161; J0690; J1040; J1170; J1200; J1885; J2175; J2270; J2405; J2710; J2765; J2930; J3010; J3360; J7030; J7040